=== PATIENT | female | born 1995 | race Caucasian/White ===

== ENCOUNTER 2017-01-23 10:54 | Emergency (ER) | payer OTHER ==
[~2017-01-23] VITALS: Ht 157.5 cm; Wt 52.0 kg
[2017-01-23 11:01] VITALS: Ht 157.5 cm; Wt 52.0 kg
[2017-01-23] MEDS ORDERED: PENICILLIN G BENZ 1.2 MIL UNIT SYG IM STA (11:59)
[2017-01-23] MEDS ORDERED: IBUP400T22 PO (12:01)
--- NOTE | 2017-01-23 12:47 | ERD ---
ER Documentation Chief Complaint Date/Time DATE: 01/23/17 TIME: 12:43 Chief Complaint sore throat x 6 days, right ear pain HPI This is a 21-year-old female presenting to the emergency department complaining of sore throat for the past 6 days. Patient states the pain has worsened in the past 6 days, she rates it 8 out of 10 and refers to her right ear. Patient' s complains of swollen lymph nodes. Patient states t she used to have a fever but now it has subsided. She has tried Tylenol at 9:00 this morning without any relief. Patient stated it started off with a cough but she denies any cough in the past few days. ROS All systems reviewed and are negative except as per history of present illness. Medications Home Meds Active Scripts Ibuprofen* (Ibuprofen*) 400 Mg Tablet, 400 MG PO Q6H Y for PAIN, #30 TAB Prov:COTY QUINTANA PA-C 01/23/17 Allergies Allergies: Coded Allergies: No Known Allergy (Unverified , 01/23/17) PMhx/Soc Medical and Surgical Hx: pt denies Medical Hx, pt denies Surgical Hx Hx Alcohol Use: No Hx Substance Use: No Hx Tobacco Use: No Smoking Status: Never smoker Physical Exam Vitals Vital Signs Date Time Temp Pulse Resp B/P Pulse Ox O2 Delivery O2 Flow Rate FiO2 01/23/17 11:01 99.1 84 16 133/71 100 Physical Exam GENERAL: well-developed/well-nourished, in no apparent distress, non-toxic appearing HEAD: NC/AT, no swelling noted in frontal or maxillary areas EARS: bilateral tympanic membrane is intact without erythema or effusion NARES: nares patent, rhinorrhea and congested THROAT: oropharynx erythematous with tonsillar exudate EYES: Conjunctiva normal NECK: Cervical lymphadenopathy right greater than left PULM: CTA bilaterally, no rales, rhonchi, or wheezing heard CV: Normal S1S2, RRR, good capillary refill GI: Soft, non-distended, normal bowel sounds, non-tender BACK: No midline tenderness, no masses EXT No clubbing, cyanosis, or edema NEURO: Alert and Orientated SKIN: Intact, normal turgor PSYCH: Normal mood and mentation Results 24 hrs Current Medications Medications (Trade) Dose Ordered Sig/Chris Route PRN Reason Start Time Stop Time Status Last Admin Dose Admin Penicillin G Benzathine (Bicillin La) 1,200,000 units ONCE STAT IM 01/23/17 11:59 01/23/17 12:01 DC 01/23/17 12:19 Procedures/MDM This is a 21-year-old female presenting to the emergency department with chief complaint of sore throat for the past 6 days, this is likely strep versus viral pharyngitis. No evidence of retropharyngeal or peritonsillar abscess. Patient states that she had a history of fever and denies cough for the past few days. On examination she had cervical adenopathy and tonsillar exudates. Patient has 3or 4 out of 4 of [employer] therefore patient will be treated for strep pharyngitis in the ED. Patient was given 1.2 units of penicillin injection. Patient was given a prescription for ibuprofen for pain and I have discussed with her to return to the ER for any worsening sinus symptoms. She stable for discharge for home. She understands and agrees with this plan Departure Diagnosis: Primary Impression: Pharyngitis Condition: Stable Patient Instructions: Pharyngitis, Strep (Presumed), Pharyngitis, Viral Additional Instructions: FOLLOW UP WITH YOUR PRIMARY CARE PHYSICIAN TOMORROW.Return to this facility if you are not improving as expected. Take all medicines as directed. Return to this facility if you are not improving as expected. Visite a alee weldon para un EXAMEN.Regrese a estas instalaciones si no se mejora eladio esperbamos o eladio le dijimos. [place] toda la medicina josh y eladio se le indic. Regrese a estas instalaciones si no se mejora eladio esperbamos o eladio le dijimos. Thank you for for coming to [facility] for your care today. Please ask your nurse or provider if you have questions about your care today and do not leave until all your questions have been answered. Please use any medications given as directed and follow-up with your doctor (or the doctor you were referred to) in the next 2-3 days. If you do not have a primary care doctor you may follow up at the [facility] (listed below). You may also use motrin and tylenol as needed for fever and/or pain unless instructed otherwise by your provider or nurse. Indications for more urgent follow-up have been discussed, but you may return to the Emergency Department at ANY time for any worrisome or worsening symptoms. COTY QUINTANA PA-C Jan 23, 2017 12:46
== END 2017-01-23 12:14 | disposition home or self-care (01) ==
LOC: FTE 10:54
DX: J02.9 Acute pharyngitis, unspecified (principal)
CPT/HCPCS: 96372; J0561